=== PATIENT | male | born 1995 | race Caucasian/White ===

== ENCOUNTER 2020-06-20 13:26 | Emergency (ER) | payer OTHER ==
[~2020-06-20] VITALS: Ht 185.4 cm; Wt 98.4 kg
[2020-06-20] MEDS ORDERED: PROPARACAINE 0.5% OPHTH SOL 15ML OS ONE (13:45)
[2020-06-20] MEDS ORDERED: FLUORESCEIN OPHTH 1 MG STRIP OS ONE (13:45)
[2020-06-20] MEDS ORDERED: BACIOIN23 OP (13:56)
[2020-06-20 14:11] VITALS: BP 121/71
== END 2020-06-20 14:16 | disposition home or self-care (01) ==
LOC: M ED 13:26
DX: H01.004 Unspecified blepharitis left upper eyelid (principal); Z88.0 Allergy status to penicillin